=== PATIENT | male | born 1950 | race Caucasian/White ===

== ENCOUNTER 2020-11-12 11:49 | Outpatient (REF) | payer MEDICARE, SELFPAY ==
[2020-11-12 12:45] LABS: MANUAL DIFF FLAG NO
[2020-11-12 12:46] LABS: Glucose Urine UA NEG (NEG); Leukocyte Esterase Urine NEG (NEG); Nitrite Urine POS (NEG); PH 5.5 (5.0-8.0); Specific Gravity - Urine >= 1.030 (1.005-1.025); Urine Blood NEG (NEG); Urine Ketones 15 MG/DL (NEG); Urine Protein 1+ MG/DL (NEG-TRACE)
[2020-11-12 12:55] LABS: Appearance Urine HAZY; Color Urine DARK YELLOW
[2020-11-12 12:57] LABS: Bacteria Urine 1+ /LPF
[2020-11-12 13:04] LABS: Basophils Percent Auto 0.3 % (0-2); Eosinophils Absolute Auto 0.1 X10*3/uL (0.0-0.4); Eosinophils Percent Auto 1.1 % (0-4); Hematocrit 42.9 % (42-52); Hemoglobin 14.6 g/dl (14.0-18.0); Imm Gran Abs Auto 0.03 X10*3/uL (0.00-0.03); Imm Gran Pct Auto 0.4 % (0.0-0.4); Lymphocytes Absolute Auto 0.6 X10*3/uL (1.2-4.9); Lymphocytes Percent Auto 8.1 % (20-40); Mean Corpuscular Hemoglobin 34.4 pg (27.0-33.0); Mean Corpuscular Volume 101.2 fL (80-98); Mean Platelet Volume 10.8 fL (9.4-12.4); Monocytes Absolute Auto 0.5 X10*3/uL (0.1-1.2); Monocytes Percent Auto 6.5 % (2-11); Neutrophils Absolute Auto 6.1 X10*3/uL (2.0-8.3); Neutrophils Percent Auto 83.6 % (45-73); Platelet Count 123 X10*3/uL (160-400); Red Blood Count 4.24 X10*6/uL (4.60-5.80); Red Cell Distribution Width 11.9 % (11.0-16.0); White Blood Count 7.3 X10*3/uL (4.8-10.8)
[2020-11-12 13:11] LABS: Estimated Average Glucose 85 mg/dL; Hemoglobin A1c % 4.6 %
[2020-11-12 13:36] LABS: Alanine Aminotransferase 13 U/L (0-40); Albumin Level 3.8 g/dL (3.5-5.0); Alkaline Phosphatase 41 U/L (39-117); Anion Gap 16 (12-20); Aspartate Amino Transferase 15 U/L (5-37); Bilirubin Direct 0.6 mg/dL (0.0-0.5); Bilirubin Total 1.5 mg/dL (0.0-1.0); Blood Urea Nitrogen 11 mg/dL (9-16); C Reactive Protein 26.37 mg/dL (< or = 0.50); Calcium 9.2 mg/dL (8.4-10.2); Carbon Dioxide 26 mmol/L (22-29); Chloride 98 mmol/L (96-108); Estimated Glomerular Filt Rate > 60; Glucose Random 96 mg/dL (60-115); Lipase 16 U/L (8-78); Potassium 4.4 mmol/L (3.3-5.1); Sodium 136 mmol/L (135-145); Total Protein 6.5 g/dL (6.5-8.0)
[2020-11-12 14:03] LABS: Erythrocyte Sedimentation Rate 57 MM/HR (0-15)
[2020-11-14 08:22] LABS: HBc Num1 0.09 S/CO (0.00-0.79); HBsAGNum1 0.17 S/CO (0.00-0.99); Hepatitis A Antibody IgM 0.14 Index (0-0.79); Hepatitis B Core Antibody Nonreactive (Nonreactive); Hepatitis B Surface Antigen Negative (Negative); ~Hepatitis A Antibody IgM Nonreactive (Nonreactive); ~Hepatitis C Antibody Nonreactive (Nonreactive)
[2020-11-14 08:40] LABS: HBS Num1 0.24 mIU/mL (0-7.99); ~Hepatitis B Surface Antibody NONREACTIVE (Nonreactive)
== END 2020-11-12 11:50 | disposition home or self-care (01) ==
LOC: HO.MANLDS 11:49
PROVIDERS: PCP Physician Assistant; Visit Provider Physician Assistant
DX: Z01.84 Encounter for antibody response examination (principal); Z11.59 Encounter for screening for other viral diseases; R10.30 Lower abdominal pain, unspecified; R30.9 Painful micturition, unspecified
CPT/HCPCS: 36415; 80053; 81001; 82248; 83036; 83690; 85025; 85652; 86140; 86704; 86706; 86709; 86803; 87086; 87340

== ENCOUNTER 2024-06-14 14:36 | Outpatient (REF) | payer MEDICARE, SELFPAY ==
--- OUTSIDE RECORDS SUMMARY | 2024-06-14 17:30 | XMS_ITS | Data Portability ---
Author Organization [facility] Home Service Address [address] [place] [address] Assessment Encounter Date Assessment Date Assessment LastModified by Organization Details LastModified Time 01/03/2022 01/03/2022 per the 2019 ACC cardiac risk stratification (revised) this patient is deemed a LOW risk for the proposed arthroscopic procedure. He understands to take his medications as usual on day of procedure /. Not available 01/03/2022 14:36:48 06/14/2024 06/14/2024 [id number] [place] [id number] (LANDSCAPE ARCHITECT) MDM HIGH MUST MEET 2 OUT OF 3 ELEMENTS: PROBLEMS, DATA OR RISK ELEMENT 1: PROBLEMS 1 OR MORE CHRONIC ILLNESS W/SEVERE EXACERBATION, PROGRESSION MAY REQUIRE HOSPITAL LEVEL CARE OR 1 ACUTE OR CHRONIC ILLNESS OR INJURY THAT POSES A THREAT TO LIFE OR BODILY FUNCTION ELEMENT 2: DATA: MUST MEET 2 OF 3 CATEGORIES CATEGORY 1 REVIEW OF PRIOR EXTERNAL NOTES REVIEW OF THE RESULTS ORDERING OF EACH TEST ASSESSMENT REQUIRING INDEPENDENT HISTORIAN(S) CATEGORY 2: INDEPENDENT INTERPRETATION OF TESTS BY ANOTHER PROVIDER/SPECIALI ST CATEGORY 3: DISCUSSION OF MGT OR TEST INTERPRETATION W/EXTERNAL PHYSICIAN/SPECIAL IST ELEMENT 3: RISK HIGH RISK OF MORBIDITY FROM ADDITIONAL DIAGNOSTIC TESTING OR TREATMENT PROVIDER MUST THOROUGHLY DOCUMENT EACH ELEMENT THAT IS COVERED The patient presented to their appointment today for multiple concerns requiring moderate to high-level decision making and took over 40-45 minutes for an adequate and appropriate history, exam, assessment and treatment plan. This appointment was done with an established patient. Not available 06/14/2024 14:33:24 Plan of Treatment Reminders Order Date Submit Date Provider Last Modified By Organization Details Last Modified Time Details Appointments NEW PROBLEM 15 2024 02:00P M DR ESPINOZA Not available Not available Not available ANNUAL EXAM 2024 01:30P M KIRSTEN WHALEY Not available Not available Not available Lab uric acid, serum or plasma 2024 025 [facility], [address] [place] [address], [id number], 06/14/2024 14:31:47 erythrocy te sedimenta tion rate by westergre n method 2024 025 [facility], [address] [place] [address], [id number], 06/14/2024 14:31:47 iron + TIBC + ferritin, serum 2024 025 [facility], [address] [place] [address], [id number], 06/14/2024 14:31:47 CMP, serum or plasma 2024 025 [facility], [address] [place] [address], [id number], 06/14/2024 14:31:47 CBC 2024 025 [facility], [address] [place] [address], [id number], 06/14/2024 14:31:47 vitamin B12 + folate, serum or blood 2023 024 [facility], [address] [place] [address], [id number], 09/22/2023 10:22:51 TSH + free T4, serum 2023 024 [facility], [address] [place] [address], [id number], 09/22/2023 10:22:51 iron + TIBC + ferritin, serum 2023 024 [facility], [address] [place] [address], [id number], 09/22/2023 10:22:51 hemoglobi n A1c, QN, blood 2023 024 [facility], [address] [place] [address], [id number], 09/22/2023 10:22:51 CBC w/ auto diff 2023 024 [facility], [address] [place] [address], [id number], 09/22/2023 10:22:51 amylase + lipase, serum 2023 024 [facility], [address] [place] [address], 12993, 09/22/2023 10:22:51 CMP, serum or plasma 2023 024 [facility], [address] [place] [address], [id number], 09/22/2023 10:22:51 PSA, total, serum or plasma 2023 024 [facility], [address] [place] [address], [id number], 09/22/2023 10:22:51 CMP, serum or plasma 2021 022 [facility], [address] [place] [address], [id number], 10/15/2021 16:25:23 hemoglobi n A1c, QN, blood 2021 022 [facility], [address] [place] [address], 13592, 10/18/2021 08:24:28 TSH + free T4, serum 2021 022 [facility], [address] [facility], [place], [address], 10/15/2021 16:35:17 osmolalit y, urine 2021 022 [facility], [address] [facility], [place], [address], 10/15/2021 16:35:17 Referral orthopedi c spine surgeon referral 2023 024 [email or web address], [address], [place], [address], 09/25/2023 12:23:01 gastroent erologist referral 2023 024 [email or web address] Not available 09/25/2023 12:23:00 Procedures None recorded. Surgeries None recorded. Imaging MRI, lumbar spine, w/o contrast 2024 025 [facility], [address] [place], [address], 06/14/2024 14:45:53 CT, heart, w/o contrast, w/ coronary calcium score 2024 025 [email or web address] [facility], [address] [place], [address], 06/14/2024 14:45:53 XR, lumbosacr al spine, 2 or 3 view 2021 022 [facility], [address] [place], [address], 10/16/2021 15:55:02 Medication Orders tamsulosi n 0.4 mg capsule 2024 025 [id number], [address] [place] [address], [phone], 06/14/2024 14:30:43 diclofena c potassium 50 mg tablet 2021 022 [email or web address] [id number], [address] [place], [place], [phone], 01/29/2022 15:03:26 Patient TargetsNo targets recorded. Patient Instructions Encounter Date Encounter Id Patient Instructions Last Modified By Organization Details Last Modified Time 06/14/2024 [id number] gout: care instructions Not available 06/14/2024 14:30:32 Reason for Referral Dial Maker Referral for Nausea and vomiting recurrent dysphagia and vomitting after eating (immediate) Referring Physician: Roberta Olguin, Internal Medicine, Encounter Date: 09/22/2023 Orthopedic Spine Surgeon Ref erral for Degeneration of lumbar intervertebral disc needs exam on back, had injection 3 years ago that worked really well Referring Physician: Roberta Olguin, Internal Medicine, Encounter Date: 09/22/2023 Results Created Date Observation Date Name Description Value Unit Range Abnormal Flag Note LastModifiedBy Organization Detail LastModifiedTime 10/17/1910/16/2021 XR, lumbo sacra l spine , 2 or 3 view No observ ation record ed. [facility] [address] [place], [address], 10/18/2021 10:31:19 12/05/19 22 12/03/2021 MRI, lumba r spine , w/o contr ast No observ ation record ed. [facility] [address] [place], [address], 12/06/2021 12:35:05 01/04/20 22 12/20/2021 MRI, knee, w/o contr ast No observ ation record ed. [email or web address] Not Available 2021 17:12:07 01/04/20 22 12/20/2021 MRI, knee, w/o contr ast No observ ation record ed. [email or web address] Not Available 2021 17:12:03 01/31/20 22 01/30/2022 XR, hand, 3 or more view No observ ation record ed. [facility] [address] [place], [address], 01/31/2022 12:37:15 Result Notes None recorded. 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 438479076447 109 Active 2019 Not Available [facility] 16:09:38 History of squamous cell carcinoma 248958708758 09 Active 2019 Not Available [facility] 16:09:38 Gout 85906029 Active 2019 Not Available [facility] 16:09:38 Diverticu litis 395440952 Active 2020 Not Available [facility] 16:09:38 Excessive thirst 38130646 Active 2021 KIRSTEN WHALEY [address] [place], [address], [facility] 2 16:21:07 Low back pain 127503256 Active 2021 KIRSTEN WHALEY [address] [place], [address], [facility] 2 16:22:49 Degenerat ion of lumbar intervert ebral disc 48226629 Active 2021 KIRSTEN WHALEY [address] [place], [address], [facility] 2 12:37:07 Pain in right hand 194627460732 109 Active 2021 KIRSTEN WHALEY [address] [place], [address], [facility] 2 15:29:42 Closed fracture of hamate bone of right wrist 467802698175 33252 Active 2021 KIRSTEN WHALEY [address] [place], [address], [facility] 2 12:37:57 Nausea and vomiting 49567080 Active 2023 KIRSTEN WHALEY [address] [place] [address], [address], [facility] 4 10:12:21 Abnormal gait 47325007 Active 2023 KIRSTEN WHALEY [address] [place] [address], [address], [facility] 4 10:14:50 Impaired fasting glycemia 523244626 Active 2023 KIRSTEN WHALEY [address] [place] [address], [address], [facility] 4 10:17:25 Intoleran t of cold 11108325 Active 2023 KIRSTEN WHALEY [address] [place] [address], [address], [facility] 4 10:18:15 Posterior rhinorrhe a 12548804 Active 2023 KIRSTEN WHALEY [address] [place] [address], [address], [facility] 4 10:25:17 Benign prostatic hyperplas ia with outflow obstructi on 183793380 Active 2024 Harshad Espinoza DO [address] [place] [address], [address], [facility] 5 14:16:08 Nocturia 963611399 Active 2024 Harshad Espinoza DO [address] [place] [address], [address], [facility] 5 14:26:45 Weakness of bilateral lower limb Active 2024 Harshad Espinoza DO [address] [place] [address], [address], [facility] 5 14:27:16 Serum ferritin above reference range 219335279 Active 2024 Harshad Espinoza DO [address] [place] [address], [address], [facility] 14:29:18 Problem Notes None recorded. Procedures Surgical History None recorded. Imaging Results Imaging Date Name Status LastModified by Organiz atcounts include 234 beds at [facility] Details LastModified Time 10/16/2021 XR, lumbosacral spine, 2 or 3 view completed [facility] [address] [place], [address], 10/18/2021 10:31:19 12/03/2021 MRI, lumbar spine, w/o contrast completed [facility] [address] [place], [address], 12/06/2021 12:35:05 12/20/2021 MRI, knee, w/o contrast completed Information not available 01/03/2022 17:12:07 12/20/2021 MRI, knee, w/o contrast completed Information not available 01/03/2022 17:12:03 01/30/2022 XR, hand, 3 or more view completed [facility] [address] [place], [address], 01/31/2022 12:37:15 Procedure Notes None recorded. Medical Equipment None Reported. Allergies No known drug allergies Medications Name Sig Start Date Stop Date Status Note LastModified by Organization Details LastModified Time ketoconazol e 2 % shampoo USE SHAMPOO IN SCALP AND ON FACE EVERY DAY TO EVERY OTHER DAY. LEAVE IN FOR 5 MINUTES BEFORE RINSING 01/29 completed Not Available Not Available Not Available meloxicam 15 mg tablet TAKE 1 TABLET BY MOUTH EVERY DAY NEEDED 01/29 completed Not Available Not Available Not Available famotidine 40 mg tablet TAKE 1 TABLET BY MOUTH DAILY AT BEDTIME active Not Available Not Available No t Available fluorouraci l 5 % topical cream APPLY TO RED SCALY LESIONS TWICE DAILY FOR 2 WEEKS NEEDED EXPECT REDNESS AND IRRITATIO N active Not Available Not Available No t Available ciprofloxac in 500 mg tablet TAKE 1 TABLET BY MOUTH EVERY 12 HOURS FOR 5 DAYS 10/15 completed Not Available Not Available Not Available tamsulosin 0.4 mg capsule Take 1 capsule every day by oral route for 30 days. 2024 active Not Available Not Available Not Avai lable polymyxin B sulfate 10,000 unit-trimet hoprim 1 mg/mL eye drops 06/30 completed Not Available Not Available Not Available diclofenac potassium 50 mg tablet TAKE 1 TABLET BY MOUTH TWICE DAILY 01/29 completed Not Available Not Available Not Available Vitals Date Recorded Body height Body mass index (BMI) Body weight Heart rate Oxygen saturation Oxygen saturation in Arterial blood by Pulse oximetry Systolic blood pressure Diastolic blood pressure Provider Name and Address Organization Details Last Updated DateTime 2 175.26 cm 24.7 kg/m2 98343.9 3 g 88 /min 100 % 100 % 128 mm[Hg] 78 mm[Hg] KIRSTEN WHALEY [address] [place], [address] [place] [address] Internal [facility] 2 16:07:19 Date Recorded Body height Body mass index (BMI) Body weight Heart rate Oxygen saturation Oxygen saturation in Arterial blood by Pulse oximetry Systolic blood pressure Diastolic blood pressure Provider Name and Address Organization Details Last Updated DateTime 2 175.26 cm 24.5 kg/m2 42400.0 5 g 93 /min 98 % 98 % 122 mm[Hg] 82 mm[Hg] Karis Mcbride [facility] 2 14:05:58 Date Recorded Body height Body mass index (BMI) Body weight Heart rate Oxygen saturation Oxygen saturation in Arterial blood by Pulse oximetry Systolic blood pressure Diastolic blood pressure Provider Name and Address Organization Details Last Updated DateTime 2 175.26 cm 24.5 kg/m2 78718.2 6 g 73 /min 100 % 100 % 132 mm[Hg] 82 mm[Hg] Karis Mcbride [facility] 2 15:05:13 Date Recorded Body height Body mass index (BMI) Body weight Heart rate Oxygen saturation Oxygen saturation in Arterial blood by Pulse oximetry Systolic blood pressure Diastolic blood pressure Provider Name and Address Organization Details Last Updated DateTime 4 176.53 cm 23.9 kg/m2 13247.5 1 g 78 /min 98 % 98 % 126 mm[Hg] 76 mm[Hg] Kurtis Sinclair [facility] 4 10:05:08 Date Recorded Body height Body mass index (BMI) Body weight Heart rate Oxygen saturation Oxygen saturation in Arterial blood by Pulse oximetry Systolic blood pressure Diastolic blood pressure Provider Name and Address Organization Details Last Updated DateTime 5 176.53 cm 24.5 kg/m2 11553.2 4 g 85 /min 98 % 98 % 136 mm[Hg] 86 mm[Hg] Ebonie Rashid [facility] 5 14:10:31 Social History Question Answer Notes LastModified by Organizat ion Details LastModified Time Tobacco Smoking Status Former Smoker Karis Rae roman [facility] 01/03/2022 14:04:21 What Was The Date Of Your Most Recent Tobacco Screening? 06/14/2024 [email or web address] Information not available 06/14/2024 Do You Or Have You Ever Used Any Other Forms Of Tobacco Or Nicotine? No [email or web address] Information not available 01/03/2022 Sex: Unknown Functional Status None recorded. Mental Status None recorded. Family History Nothing Reported. Medical History No medical history recorded. Past Encounters Encounter ID Performer Location Encounter Start Date Encounter Closed Date Diagnosis/Indication Diagnosis SNOMED-CT Code Diagnosis ICD10 Code Diagnosis Note [id number] KIRSTEN WHALEY [facility] [address] [place] [address] 07/01/2019 13:25:59 07/01/2019 14:12:03 Gout 25155141 M10.9 the patient will be treated on diclofenac for 15 days the patient is informed if it is treated within several days he does not have to continue with treatment he can give the office a call if continues to have pain and gout the patient understand s and agrees with it [id number] KIRSTEN WHALEY [facility] [address] [place] [address] [place] [address] 08/23/2019 10:24:46 08/23/2019 13:43:16 Osteoarthritis of knee 848677101 M17.9 will start will XR of the knee and have the patient take APAP/aleve with food when gets results back will send ortho referral if he does indeed have arthritis [id number] Harshad Espinoza, [facility] [address] [place] [address] 01/13/2020 10:58:47 01/13/2020 12:02:52 Active or passive immunization 044382710 Z23 pt will get shingles and pneumococc al vacc Adult heal th examination 096628511 Z00.00 doing well no issues remain active [id number] KIRSTEN WHALEY [facility] [address] [place] [address] 11/12/2020 10:55:04 11/12/2020 13:54:32 Abdominal pain 34260375 R10.30 will fu with fu work up abdominal painddx includes diverticul itis, colitis, pancreatit is, hepatitis Dysuria 39757245 R30.9 will fu with dipstick and culture Cough 16719180 R05 will fu XR for ongoing chest congestion [id number] KIRSTEN WHALEY [facility] [address] [place] [address] 10/15/2021 16:00:40 10/15/2021 17:02:21 Advance care planning 952380705 Z71.89 advised Excessive thirst 6132924 7 R63.1 will check for diabetes Low back pain 949566412 M54.59 will start with XR low back then fu with MRI Fall W19.XXXA no LOC or head injury Gout 66842570 M10.9 needs refill [id number] Harshad Espinoza DO [facility] [address] [place] [phone] 01/03/2022 13:51:57 01/03/2022 16:44:08 Pre-surgery evaluation 120353664 Z01.818 cleared as noted. [id number] KIRSTEN WHALEY [facility] [address] [place] [phone] 01/29/2022 14:52:31 01/29/2022 15:53:00 Pre-surgery evaluation 376449624 Z01.818 The patient was seen in the office today for pre-op evaluation . All medical conditions on patient's problem list were addressed and are currently stable, no interventi on needed at this time. Based on history and physical performed, the patient is cleared for surgery. [id number] KIRSTEN WHALEY [facility] [address] [facility],[place] [address] 09/22/2023 09:50:44 09/22/2023 14:17:24 Depression screening 349974413 Z13.31 negative Nausea and vomiting 1693 2000 R11.2 will set up wit GI consult Abnormal gait 31277090 R 26.89 will check levels and also have him see [facility] again for the low back arthritis Diverticulitis 297570877 K57.92 stable Impaired f asting glycemia 108988886 R73.01 will set up with orders to recheck Screening for malignant neoplasm of prostate 608938153 Z12.5 will set up with PSA Intolerant of cold 51841 000 R68.89 will set up with thyroid check Degenerati on of lumbar intervertebral disc 68754573 M51.36 will set up with again [facility] Posterior rhinorrhea 758 55414 R09.82 start flonase [id number] Harshad Espinoza DO [facility] [address] [facility] [place] [address] 06/14/2024 14:01:17 06/14/2024 14:45:53 Depression screening 194216913 Z13.31 neg Nocturia 688428982 R35.1 see below Benign pro static hyperplasia with outflow obstruction 269254208 N40.1 will try meds first Weakness o f bilateral lower limb 0808500145 25134 M62.81 Gout 18944339 M10.9 Serum ferr itin above reference range 270469771 R77.8 Family his tory of Cardiovascular disease 397056320 Z82.49 Health Concerns Section Related Observation LastModified by Organization Detai ls LastModified Time None Recorded Concern Status LastModified by Organization Details LastModified Time None Recorded Advance Directives Directive None Recorded Payers Encounter Date Sequence Insurance Name Policy Number Policy Garcia Covered Member ID Garcia Member ID Guarantor Name 10/15/2021 1 [facility] [id number] Brad Medina [id number] Brad Medina 01/03/2022 1 [facility] [id number] Brad Medina [id number] Brad Medina 01/29/2022 1 [facility] [id number] Brad Medina [id number] Brad Sofia [place] 09/22/2023 1 [facility] [id number] Brad Medina [id number] Brad Medina 06/14/2024 1 [facility] [id number] Brad Medina [id number] Brad Medina Notes Date Note Type Note Provider Name and Address Organization Details Recorded Time 2 text/htm l c/o low back pain the patient reports concerns for diabetes, excessive thirstfamily hx of diabetes, would like to check his T3tiuip given to patient patient seen for knee and hips, will need hip surgery but orhto wanted his back checkedhasn't had imaging on his back, will most likely need MRI, concern for possible foot drop given he drags his feet per his recent fall, no head injury or LOCnose is not broken per UC needs refill of diclofenac for gout will fu after XR KIRSTEN WHALEY [address] [place] [address], [phone], [facility] 10/15/2021 16:44:29 2 text/htm l Pre-OpReported bypatient.Risk Factorsno cognitive impairment; no functional impairment; no malnutrition; no frailty; able to climb a flight of stairs (exercise capacity>4 METS); no obstructive sleep apnea; non-smoker; no alcohol misuse; no illicit drug use; no chronic cardiopulmonary condition; not obese Anesthesia hx:no hx of anesthesia complications; no allergy to anesthetic agents; no family history of anesthesia complications Functional Ability:able to walk up stairs; able to perform heavy work around the house; no difficulty walking up hills; able to walk 4 mph Harshad Espinoza DO [address] [place], [address], [facility] 01/03/2022 14:37:17 2 text/htm l Pre-OpReported bypatient.Surgery to be Performed:left knee arthoscopy Dr. [place] Risk Factorsno cognitive impairment; no functional impairment; no malnutrition; no frailty; able to climb a flight of stairs (exercise capacity>4 METS); no obstructive sleep apnea; non-smoker; no alcohol misuse; no illicit drug use; no chronic cardiopulmonary condition; not obese Anesthesia hx:no hx of anesthesia complications; no allergy to anesthetic agents; no family history of anesthesia complications; no history with anesthesia Functional Ability:able to walk up stairs; able to perform heavy work around the house; no difficulty walking up hills; able to walk 4 mph Post-Op Support:adequate assistance at home () KIRSTEN WHALEY [address] [place], [address], [facility] 01/29/2022 15:29:04 4 text/htm l c/o throwing up after eating for the past year or so patient has had a reaction where in the morning and sometimes at night he throws up immediately after eating or while eatingnotable mucus as well as food, notes that he has significant post nasal drip which can irritate the stomach liningsuggested flonaseand since he has been throwing up every meal for the past month, ?dyspepsia vs stricture or other abnormality of the esophagus, has never had an endoscope, recommended fu with GI for one and lab work which was ordered today in office having a shuffled gait, patient is an avid walker, walks about 70 miles per weektends to shuffle after a long day, could be related to LE fatigue or his lumbar spine and knee problems suggested fu with [facility] since he had excellent response to cortisone inj to his back three years ago overdue for lab workadded TSH due to new onset cold intolerance KIRSTEN WHALEY [address] [facility], [place], [address], [facility] 09/22/2023 10:32:06 5 text/htm l Bowel Complaints/Fecal IncontinenceReported bypatient.Context:no recent opiates; no recent surgery; normal toileting ability; no history of IBS; no history of colonoscopy; no history of diverticulosis; no abnormal imaging Associated Symptoms:no abdominal pain; no vaginal bulge or pressure; no excess gas; no bloating; no cramping; no nausea; no vomiting; no weight loss; no heartburn; no blood in stoolNotes:no divertic sx doing fineOveractive BladderReported bypatient.Associated Symptoms:no abdominal pain; no pain in the flank; no back pain; no chills; no constipation; no diarrhea; no dribbling; no pain with urination; normal emptying of bladder; no blood in semen; no blood in the urine; no hesitancy; no impotence; normal libido; no nausea; no vomiting; no nocturia; no urine odor; no straining; no incontinence; no fever; no feelings of urgency; no urge incontinenceNotes:relate s that he is now waking up mult times at night to urinate states he is shuffling Harshad Espinoza, DO [address] [facility], [place], [address], [facility] 06/14/2024 14:33:28
--- OUTSIDE RECORDS SUMMARY | 2024-06-14 17:30 | XMS_ITS | Continuity of Care Document ---
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) MDM HIGH MUST MEET 2 OUT OF [...] uric acid, serum or plasma 2024 025 [facility], [address] [place] [address], [place], [address], 06/14/2024 14:31:47 erythrocy te sedimenta tion rate by nydia rowe method 2024 [facility], [address] [place] [address], [place], [address], 06/14/2024 14:31:47 iron + TIBC + ferritin, serum 2024 [facility], [address] [place] [address], [place], [address], 06/14/2024 14:31:47 CMP, serum or plasma 2024 [facility], [address] [place] [address], [place], [address], 06/14/2024 14:31:47 CBC 2024 [facility], [address] [place] [address], [place], [address], 06/14/2024 14:31:47 Referral None recorded. Procedures None recorded. Surgeries None recorded. Imaging MRI, lumbar spine, w/o contrast 2024 025 [email or web address] [facility], [address] [place], [address], 06/14/2024 14:45:53 CT, heart, w/o contrast, w/ coronary calcium score 2024 025 [facility], [address] [place], [address], 06/14/2024 14:45:53 Medication Orders tamsulosi n 0.4 mg capsule 2024 025 [id number], [address] [place] [address], [id number], 06/14/2024 14:30:43 Patient TargetsNo targets recorded. Patient Instructions Encounter Date Encounter Id Patient Instructions Last Modified By Organization Details Last Modified Time 06/14/2024 [id number] gout: care instructions Not available 06/14/2024 14:30:32 Reason for Referral None Reported. 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 604336521602 109 Active 2019 Not Available [facility] 16:09:38 History of squamous cell carcinoma 564797139664 09 Active 2019 Not Available [facility] 16:09:38 Gout 62709333 Active 2019 Not Available [facility] 16:09:38 Diverticu litis 536521927 Active 2020 Not Available [facility] 16:09:38 Excessive thirst 92361712 Active 2021 KIRSTEN WHALEY [address] [place], [address], [facility] 16:21:07 Low back pain 698355096 Active 2021 KIRSTEN WHALEY [address] [place], [address], [facility] 16:22:49 Degenerat ion of lumbar intervert ebral disc 59615622 Active 2021 KIRSTEN WHALEY [address] [place], [address], [facility] 12:37:07 Pain in right hand 284221465089 109 Active 2021 KIRSTEN WHALEY [address] [place], [address], [facility] 15:29:42 Closed fracture of hamate bone of right wrist 682246054416 03823 Active 2021 KIRSTEN WHALEY [address] [place], [address], [facility] 2 12:37:57 Nausea and vomiting 70201868 Active 2023 KIRSTEN WHALEY [address] [place] [address], [address], [facility] 4 10:12:21 Abnormal gait 30601926 Active 2023 KIRSTEN WHALEY [address] [place] [address], [address], [facility] 4 10:14:50 Impaired fasting glycemia 435084476 Active 2023 KIRSTEN WHALEY [address] [place] [address], [address], [facility] 4 10:17:25 Intoleran t of cold 49166496 Active 2023 KIRSTEN WHALEY [address] [place] [address], [address], [facility] 4 10:18:15 Posterior rhinorrhe a 69632415 Active 2023 KIRSTEN WHALEY [address] [place] [address], [address], [facility] 4 10:25:17 Benign prostatic hyperplas ia with outflow obstructi on 825310326 Active 2024 Harshad Espinoza DO [address] [place] [address], [address], [facility] 5 14:16:08 Nocturia 831905459 Active 2024 Harshad Espinoza DO [address] [place] [address], [address], [facility] 5 14:26:45 Weakness of bilateral lower limb Active 2024 Harshad Espinoza DO [address] [place] [address], [address], [facility] 5 14:27:16 Serum ferritin above reference range 613751206 Active 2024 Harshad Espinoza DO [address] [place], [address], [facility] 14:29:18 Problem Notes None recorded. Medical Equipment None Reported. [...] Updated DateTime 5 176.53 cm 24.5 kg/m2 26307.2 4 g 85 /min 98 % 98 % 136 mm[Hg] 86 mm[Hg] Ebonie Rashid [facility] 5 14:10:31 Social History Question Answer Notes LastModified by Organizat ion Details LastModified Time Tobacco Smoking Status Former Smoker Karis roman [facility] 01/03/2022 14:04:21 What Was The Date Of Your Most Recent Tobacco Screening? 06/14/2024 [email or web address] Information not available 06/14/2024 Do You Or Have You Ever Used Any Other Forms Of Tobacco Or Nicotine? No [email or web address] Information not available 01/03/2022 Sex: Unknown Functional Status None recorded. Mental Status None recorded. Family History Nothing Reported. Medical History No medical history recorded. Past Encounters Encounter ID Performer Location Encounter Start Date Encounter Closed Date Diagnosis/Indication Diagnosis SNOMED-CT Code Diagnosis ICD10 Code Diagnosis Note [id number] DO [facility] [address] [facility],[place] [address] 06/14/2024 14:01:17 06/14/2024 14:45:53 Depression screening 171579944 Z13.31 neg Nocturia 014810378 R35.1 see below Benign pro static hyperplasia with outflow obstruction 090053712 N40.1 will try meds first Weakness o f bilateral lower limb 8404980834 63194 M62.81 Gout 35637165 M10.9 Serum ferr itin above reference range 258414450 R77.8 Family his tory of Cardiovascular disease 305300410 Z82.49 Health Concerns Section Related Observation LastModified by Organization Detai ls LastModified Time None Recorded Concern Status LastModified by Organization Details LastModified Time None Recorded Payers Encounter Date Sequence Insurance Name Policy Number Policy Garcia Covered Member ID Garcia Member ID Guarantor Name 06/14/[address] [place] [address] [id number] Brad Medina [id number] Brad Medina Notes Date Note Type Note Provider Name and Address Organization Details Recorded Time 5 text/htm l Bowel Complaints/Fecal IncontinenceReported bypatient.Context:no [...] he is shuffling Harshad Espinoza, DO [address] [facility], [place], [address], [facility] 06/14/2024 14:33:28
[2024-06-14 18:15] LABS: MANUAL DIFF FLAG NO
[2024-06-14 18:53] LABS: Alanine Aminotransferase 11 U/L (0-40); Albumin Level 3.8 g/dL (3.5-5.0); Alkaline Phosphatase 39 U/L (39-117); Anion Gap 10 (12-20); Aspartate Amino Transferase 17 U/L (5-37); Bilirubin Total 0.5 mg/dL (0.0-1.0); Blood Urea Nitrogen 7 mg/dL (9-16); Carbon Dioxide 28 mmol/L (22-29); Chloride 101 mmol/L (96-108); Estimated Glomerular Filt Rate > 60; Glucose Random 84 mg/dL (60-115); Iron 160 mcg/dL (45-160); Percent Iron Saturation 63 % (15-50); Potassium 4.2 mmol/L (3.3-5.1); Sodium 135 mmol/L (135-145); Total Iron Binding Capacity 255 mcg/dL (228-428); Total Protein 6.4 g/dL (6.5-8.0); Unsaturated Iron Binding 95 ug/dL; Uric Acid 5.9 mg/dL (3.4-7.0)
[2024-06-14 18:57] LABS: Basophils Percent Auto 0.8 % (0-2); Eosinophils Absolute Auto 0.2 X10*3/uL (0.0-0.4); Eosinophils Percent Auto 4.7 % (0-4); Hematocrit 41.6 % (42.0-52.0); Hemoglobin 14.4 g/dl (14.0-18.0); Imm Gran Abs Auto 0.01 X10*3/uL (0.00-0.03); Imm Gran Pct Auto 0.2 % (0.0-0.4); Lymphocytes Absolute Auto 1.1 X10*3/uL (1.2-4.9); Lymphocytes Percent Auto 21.2 % (20-40); Mean Corpuscular HGB Conc 34.6 g/dl (31.0-36.0); Mean Corpuscular Hemoglobin 32.4 pg (27.0-33.0); Mean Corpuscular Volume 93.7 fL (80.0-98.0); Mean Platelet Volume 9.8 fL (9.4-12.4); Monocytes Absolute Auto 0.5 X10*3/uL (0.1-1.2); Monocytes Percent Auto 10.1 % (2-11); Neutrophils Absolute Auto 3.2 x10*3/uL (2.0-8.3); Platelet Count 195 X10*3/uL (160-400); Red Blood Count 4.44 X10*6/uL (4.60-5.80); Red Cell Distribution Width 12.5 % (11.0-16.0); White Blood Count 5.1 X10*3/uL (4.8-10.8)
[2024-06-14 19:06] LABS: Ferritin 480 ng/mL (20-250)
[2024-06-14 19:33] LABS: Erythrocyte Sedimentation Rate 7 MM/HR (0-15)
== END 2024-06-14 14:37 | disposition home or self-care (01) ==
LOC: HO.MANLDS 14:36
PROVIDERS: Visit Provider Internal Medicine
DX: M10.9 Gout, unspecified (principal); E77.8 Other disorders of glycoprotein metabolism
CPT/HCPCS: 36415; 80053; 82728; 83540; 84550; 85025; 85652